=== PATIENT | female | born 2000 ===

== ENCOUNTER 2023-05-26 22:20 | Inpatient (IN) | payer OTHER ==
[~2023-05-26] VITALS: Ht 160 cm; Wt 70.3 kg
--- OUTSIDE RECORDS SUMMARY | ~2023-05-26 | XMS | Continuity of Care Document ---
Demographics + + + | Address | [address] | | | [place] [address] | + + + | Preferred Language | Unknown | + + + | Marital Status | Never | + + + | Oriental Orthodox Affiliation | Unknown | + + + | Race | Unknown | + + + | Ethnic Group | or | + + + Author + + + | Author | [facility] | + + + | Organization | [facility] | + + + | Address | [address] | | | [place] [address] | + + + | Phone | | + + + Care Team Providers + + + + | Care Subgrade Tester Name | Role | Phone | + + + + Unavailable | Unavailable | + + + + Unavailable | Unavailable | + + + + Allergies and Intolerances + + + + + + | date | description | facility | reaction | severity | + + + + + + | (no date) | NO KNOWN | [facility] | (no reaction) | (no severity) | | | ALLERGIES | | | | + + + + + + Encounters No information. Functional Status No information. Immunizations No information. Medications No information. Problems + + + + | date | description | facility | + + + + | 2023-01-27 00:42:44 | Vomiting of , | [facility] | | | unspecified | | + + + + | 2023-01-27 00:42:44 | 15 weeks gestation of | [facility] | | | | | + + + + | 2023-03-31 21:05:03 | Vaginal Bleeding | [facility] | + + + + | 2023-05-02 23:28:56 | Laceration without foreign | [facility] | | | body of right hand, | | | | initial encounter | | + + + + Procedures No information. Results/Labs No information. Social History No information. Vital Signs No information."
[2023-05-26 22:57] LABS: HEMATOCRIT 36.3 % (35.0-50.0); HEMOGLOBIN 11.9 g/dL (12.0-18.0); MCH 28.5 (27-36); MCHC 32.8 g/dl (30-36); RBC 4.17 M/ul (4.3-5.7); RDW 13.6 (10.5-15.0)
[2023-05-26 23:00] LABS: AMPHETAMINES, UR NEGATIVE (NEGATIVE); BARBITURATES, UR NEGATIVE (NEGATIVE); BENZODIAZEPINES, UR NEGATIVE (NEGATIVE); BUPRENORPHINE,UR NEGATIVE (NEGATIVE); COCAINE, UR NEGATIVE (NEGATIVE); MARIJUANA (THC), UR NEGATIVE (NEGATIVE); MDMA, UR NEGATIVE (NEGATIVE); METHADONE, UR NEGATIVE (NEGATIVE); METHAMPHETAMINE, UR NEGATIVE (NEGATIVE); OPIATES, UR NEGATIVE (NEGATIVE); OXYCODONE, UR NEGATIVE (NEGATIVE); PHENCYCLIDINE, UR NEGATIVE (NEGATIVE); TRICYCLIC ANTIDEPRESSANT, UR NEGATIVE (NEGATIVE)
[2023-05-27 00:12] VITALS: BP 127/69
--- NOTE | 2023-05-27 05:10 | PR ---
[facility] [address] [place], [place] [address] Signed Progress Notes IP Datetime Report Generated by CPN: 05/27/2023 05:09 PROGRESS NOTES: [id number] Impression: Normal Progression of Labor; Reassuring Heart Rate Procedures: Sterile Vag Exam Plan: Continue Present Management; Anticipate Vaginal Delivery VITAL SIGNS: [id number] Vital Signs: Reviewed; Within Normal Limits EXAM: [id number] Dilatation: 9.5 Effacement: 100 Station: 1 Contractions: irritability MEMBRANES: [id number] Membranes Status: Ruptured Amniotic Fluid Color: Clear Comments: Pt progressed well with expectant management; now 9.5 cm with right sided lip. Discussed repositioning to try and reduce lip then anticipate . Pt in agreement with plan FETUS A: [id number] FHR Baseline: 135 Variability: Moderate 6-25bpm Accelerations: 15X15 Decelerations: None FHR Category: Category I Presentation: Vertex Comments on Fetus A: no evidence of acidemia FETUS B: [id number] Signing Physician: Claire Healy DO Copies: ~ *Electronically Signed* 05/27/23 0509 CLAIRE HEALY DO PATIENT NAME: ANIL ALEX PROGRESS NOTE DATE OF : 02 PHYSICIAN: CLAIRE HEALY DO RPT #: [id number] REPORT IS CONFIDENTIAL AND NOT TO BE RELEASED WITHOUT AUTHORIZATION
[2023-05-27 14:26] LABS: ABO O; ANTIBODY SCREEN POSITIVE; RH POSITIVE
[2023-05-28 05:18] LABS: HEMOGLOBIN 11.1 g/dL (12.0-18.0); MCH 28.8 (27-36); MCHC 32.5 g/dl (30-36); MCV 88.6 fl (81-99); RBC 3.84 M/ul (4.3-5.7); RDW 14.1 (10.5-15.0)
--- NOTE | 2023-05-28 09:21 | PR ---
[facility] [address] [place] [address] Signed PP Progress Notes Datetime Report Generated by CPAnil: 05/28/2023 09:21 SUBJECTIVE: [id number] Pain: Within Normal Limits Vital Signs: [id number] Vital Signs: Reviewed; Within Normal Limits Cardiovascular: Not Done Respiratory: Not Done Abdomen/Uterus: Abnormal Lochia: Normal Vulva/Perineum: Not Done Breasts: Not Done CVA Tenderness: Not Done Extremities: Normal Incision: Not Applicable Progress: Normal Exam Comments: Fundus firm, NT @ U-2. H/H 11.1/34.0, WBC 13.3, plat 192k IMPRESSION/PLAN/PROCEDURES: [id number] Impression: Normal Progression; Difficulties Plan: Continue Present Management; Consult Procedures: None Progress Notes: Doing well other than some breast feeding issues. Given the long wkend and the issues with nursing, will plan on keeping her until tomorrow with breast feeding consult. Signing Physician: Ruby Wade MD Copies: ~ *Electronically Signed* 05/28/23920 RUBY WADE MD PATIENT NAME: ANIL ALEX PROGRESS NOTE DATE OF : 02 PHYSICIAN: RUBY WADE MD RPT #: [id number] REPORT IS CONFIDENTIAL AND NOT TO BE RELEASED WITHOUT AUTHORIZATION
[2023-05-28 10:29] LABS: VARICELLA-ZOSTER VIRUS AB,IGG 143.4 IV (())
--- NOTE | 2023-05-29 11:31 | PR ---
[facility] [address] [place], [place] [address] Signed PP Progress Notes Datetime Report Generated by CPN: 05/29/2023 11:31 SUBJECTIVE: [id number] Pain: Within Normal Limits Nausea/Vomiting: Denies Vital Signs: [id number] Vital Signs: Reviewed; Within Normal Limits Cardiovascular: Normal Respiratory: Normal Abdomen/Uterus: Normal Lochia: Normal Vulva/Perineum: Not Done Breasts: Not Done CVA Tenderness: Not Done Extremities: Normal Incision: Not Applicable Progress: Not Applicable Exam Comments: NAD, sitting in bed resting RRR No dyspnea/ retractions Abd SNTND, FFBU Ext: no edema, neg Va's BL IMPRESSION/PLAN/PROCEDURES: [id number] Impression: Normal Progression Plan: Continue Present Management; Discharge Procedures: None Progress Notes: Pt is a 23 yo PPD#2 s/p uncomplicated -progressing well : denies pain, lochia light, ambulating/ voiding/ tolerating regular diet -requesting DC to home today, planning formula feeding but aware of resources in [place] -planning pill for contraception Signing Physician: Claire Healy DO *Electronically Signed* 05/29/23 0451 CLAIRE HEALY DO PATIENT NAME: ANIL ALEX PROGRESS NOTE DATE OF : 02 PHYSICIAN: CLAIRE HEALY DO RPT #: [id number] REPORT IS CONFIDENTIAL AND NOT TO BE RELEASED WITHOUT AUTHORIZATION
== END 2023-05-29 12:25 | disposition home or self-care (01) | DRG 807 ==
LOC: FBCO 22:20 → FBC 22:43 → MS 05-27 08:40 → FBC 05-27 08:41
PROVIDERS: Obstetrics & Gynecology; ADMIT Obstetrics & Gynecology; ATTEND Obstetrics & Gynecology
PROC: 3E033VJ Introduction of Other Hormone into Peripheral Vein, Percutaneous Approach (ICD-10-PCS; 2023-05-26)
PROC: 10E0XZZ Delivery of Products of Conception, External Approach (ICD-10-PCS; principal; 2023-05-27)
PROC: 00HU33Z Insertion of Infusion Device into Spinal Canal, Percutaneous Approach (ICD-10-PCS; 2023-05-27)
PROC: 3E0R3BZ Introduction of Anesthetic Agent into Spinal Canal, Percutaneous Approach (ICD-10-PCS; 2023-05-27)
DX: O42.02 Full-term premature rupture of membranes, onset of labor within 24 hours of rupture (principal); Z37.0 Single live birth; O76 Abnormality in fetal heart rate and rhythm complicating labor and delivery; Z67.40 Type O blood, Rh positive; Z3A.37 37 weeks gestation of pregnancy
CPT/HCPCS: 01960; 36415; 85027; 86787; 86850; 86870; 86900; 86901; A9270; J7121